=== PATIENT | female | born 1965 | race Hispanic/Latino ===

== ENCOUNTER 2018-12-30 17:51 | Emergency (ER) | payer OTHER | END 2018-12-30 19:04 | LOC: EDH 17:51 | DX: O26.891 Other specified pregnancy related conditions, first trimester (principal); I10 Essential (primary) hypertension; M19.90 Unspecified osteoarthritis, unspecified site; Z72.0 Tobacco use; Z3A.16 16 weeks gestation of pregnancy | CPT/HCPCS: 81025 ==